=== PATIENT | male | born 1990 | race Caucasian/White ===

== ENCOUNTER 2020-05-15 10:42 | Emergency (ER) | payer MEDICAID ==
[~2020-05-15] VITALS: Ht 190.5 cm; Wt 143.2 kg
[2020-05-15 10:47] VITALS: BP 143/81; Ht 190.5 cm; Wt 143.2 kg
[2020-05-15] MEDS ORDERED: GLUCOPHAGE500 MG PO (10:48)
[2020-05-15] MEDS ORDERED: ERYTHROMYCIN OPT1 GM EACH EYE (11:07)
[2020-05-15] MEDS ORDERED: POLYTRIM EYE DR10 ML LEFT EYE (11:07)
== END 2020-05-15 11:31 | disposition home or self-care (01) ==
LOC: D.ER 10:42
DX: H10.9 Unspecified conjunctivitis (principal); E11.9 Type 2 diabetes mellitus without complications; Z79.84 Long term (current) use of oral hypoglycemic drugs